=== PATIENT | female | born 1940 ===

== ENCOUNTER 2018-06-17 10:15 | Outpatient (CLI) | payer MEDICARE, BC | END 2018-06-17 10:16 | disposition home or self-care (01) | DRG 950 | LOC: CONVCARE 10:15 | PROVIDERS: ATTEND Orthopaedic Surgery | DX: Z51.89 Encounter for other specified aftercare (principal); Z98.890 Other specified postprocedural states | CPT/HCPCS: 73502 ==

== ENCOUNTER 2018-07-15 11:13 | Outpatient (CLI) | payer MEDICARE, BC | END 2018-07-15 11:14 | disposition home or self-care (01) | DRG 561 | LOC: CONVCARE 11:13 | PROVIDERS: ATTEND Orthopaedic Surgery | DX: Z47.89 Encounter for other orthopedic aftercare (principal) | CPT/HCPCS: 73502 ==

== ENCOUNTER 2018-09-23 10:22 | Outpatient (CLI) | payer MEDICARE, BC | END 2018-09-23 10:23 | disposition home or self-care (01) | DRG 561 | LOC: CONVCARE 10:22 | PROVIDERS: ATTEND Orthopaedic Surgery | DX: Z47.89 Encounter for other orthopedic aftercare (principal) | CPT/HCPCS: 73502 ==